=== PATIENT | female | born 1955 | race Caucasian/White ===

== ENCOUNTER 2020-05-10 18:08 | Inpatient (IN) | payer BC ==
[~2020-05-10] VITALS: Ht 157.5 cm; Wt 63.6 kg
[2020-05-10 19:13] LABS: BASOPHILS % (AUTO) 0.2 % (0-1); EOSINOPHILS # (AUTO) 0.1 X10'3 (0-0.9); EOSINOPHILS % (AUTO) 0.8 % (0-6); HEMATOCRIT 34.9 % (35.0-45.0); HEMOGLOBIN 11.9 g/dl (12.0-16.0); LYMPHOCYTES # (AUTO) 0.8 X10'3 (1.1-4.8); MEAN CORPUSCULAR HEMOGLOBIN 32.4 PG (27.0-31.0); MEAN CORPUSCULAR HGB CONC 34.2 g/dL (33.0-36.5); MEAN CORPUSCULAR VOLUME 94.7 FL (78-98); MEAN PLATELET VOLUME 9.2 FL (7.4-10.4); MONOCYTES # (AUTO) 0.6 X10'3 (0-0.9); MONOCYTES % (AUTO) 6.9 % (2-12); NEUTROPHILS # (AUTO) 6.8 X10'3 (1.8-7.7); NEUTROPHILS % (AUTO) 82.1 % (42-75); PLATELET COUNT 175 X10'3 (140-440); RED BLOOD COUNT 3.68 X10'6 (4.20-5.60); RED CELL DISTRIBUTION WIDTH 13.4 % (11.5-14.5); WHITE BLOOD COUNT 8.3 X10'3 (4.5-11.0)
[2020-05-10 19:25] LABS: ALANINE AMINOTRANSFERASE 476 U/L (12-78); ALKALINE PHOSPHATASE 74 IU/L (46-116); ANION GAP 10 (8-16); ASPARTATE AMINO TRANSFERASE 254 U/L (10-37); BILIRUBIN,TOTAL 4.9 MG/DL (0.1-1.0); BLOOD UREA NITROGEN 13 MG/DL (7-18); BUN/CREATININE RATIO 12.6 (6.6-38.0); CALCIUM 8.8 MG/DL (8.5-10.1); CHLORIDE 102 MMOL/L (99-107); CREATININE 1.03 MG/DL (0.40-0.90); GLUCOSE 103 MG/DL (70-104); LIPASE 92 U/L (73-393); POTASSIUM 3.9 MMOL/L (3.5-5.1); SODIUM 138 MMOL/L (135-145); TOTAL CARBON DIOXIDE 26.3 MMOL/L (24-32); eGFR 54 ML/MIN
[2020-05-10 19:27] LABS: TOTAL PROTEIN 6.1 G/DL (6.4-8.2)
[2020-05-10 20:13] LABS: PARTIAL THROMBOPLASTIN TIME 31 SECONDS (22-32)
[2020-05-10] MEDS ORDERED: NO HOME MEDS (20:14)
[2020-05-10] MEDS ORDERED: magnesium hydroxide 30ml (MOM) UD suspension PO PRN (20:25)
[2020-05-10] MEDS ORDERED: potassium CL 10mEq/100ml bag 100 ML IV PRN ×2 (20:25)
[2020-05-10] MEDS ORDERED: ondansetron/PF 4mg/2ml inj IV PRN (20:25)
[2020-05-10] MEDS ORDERED: magnesium 2GM in 50ml NS 50 ML IV PRN (20:25)
[2020-05-10] MEDS ORDERED: magnesium 4gm in 100ml NS 100 ML IV PRN (20:25)
[2020-05-10] MEDS ORDERED: potassium Cl 20 mEq SR tablet PO PRN ×2 (20:25)
[2020-05-10] MEDS ORDERED: magnesium Cl slow-release 64mg tablet PO PRN (20:25)
[2020-05-10] MEDS ORDERED: mag hydrox/Alum hydrox/simeth 30ml oral suspension PO PRN (20:25)
[2020-05-10] MEDS ORDERED: morphine 2 MG/ML inj. syringe IV PRN (20:25)
[2020-05-10] MEDS ORDERED: SINCALIDE IV PRN (20:25)
[2020-05-10] MEDS ORDERED: acetaminophen 325mg tablet PO PRN (20:25)
[2020-05-10] MEDS: normal saline 1000ml 1,000 ML IV SCH (20:25)
[2020-05-10] MEDS ORDERED: NORMAL SALINE IV PRN (20:25)
--- NOTE | 2020-05-11 02:30 | NUR ---
lying supine sleeping no apparent distress, eupneic respiriations
--- NOTE | 2020-05-11 03:30 | NUR ---
up to bathroom stand by assist. No compalints at this time,
--- NOTE | 2020-05-11 04:30 | NUR ---
laying supine eupneic respirations, no signs of distress
--- NOTE | 2020-05-11 05:25 | NUR ---
laying on left side eupneice respirations, no signs of distress
[2020-05-11] MEDS: K and/or MAG REPLACEMENT MC SCH ×2 (08:00→20:00)
[2020-05-11 08:24] LABS: BASOPHILS % (AUTO) 0.3 % (0-1); EOSINOPHILS # (AUTO) 0.2 X10'3 (0-0.9); EOSINOPHILS % (AUTO) 3.4 % (0-6); HEMATOCRIT 34.1 % (35.0-45.0); HEMOGLOBIN 11.4 g/dl (12.0-16.0); LYMPHOCYTES # (AUTO) 0.6 X10'3 (1.1-4.8); LYMPHOCYTES % (AUTO) 12.7 % (21-51); MEAN CORPUSCULAR HGB CONC 33.4 g/dL (33.0-36.5); MEAN CORPUSCULAR VOLUME 95.7 FL (78-98); MEAN PLATELET VOLUME 9.5 FL (7.4-10.4); MONOCYTES # (AUTO) 0.5 X10'3 (0-0.9); MONOCYTES % (AUTO) 10.8 % (2-12); NEUTROPHILS # (AUTO) 3.5 X10'3 (1.8-7.7); NEUTROPHILS % (AUTO) 72.8 % (42-75); PLATELET COUNT 166 X10'3 (140-440); RED BLOOD COUNT 3.57 X10'6 (4.20-5.60); RED CELL DISTRIBUTION WIDTH 13.6 % (11.5-14.5); WHITE BLOOD COUNT 4.7 X10'3 (4.5-11.0)
[2020-05-11 08:43] LABS: ALANINE AMINOTRANSFERASE 349 U/L (12-78); ALBUMIN 2.8 G/DL (3.4-5.0); ALBUMIN/GLOBULIN RATIO 0.8 (1.1-1.5); ALKALINE PHOSPHATASE 69 IU/L (46-116); ANION GAP 6 (8-16); ASPARTATE AMINO TRANSFERASE 144 U/L (10-37); BILIRUBIN,TOTAL 3.7 MG/DL (0.1-1.0); BLOOD UREA NITROGEN 9 MG/DL (7-18); BUN/CREATININE RATIO 9.5 (6.6-38.0); CALCIUM 9.5 MG/DL (8.5-10.1); CHLORIDE 109 MMOL/L (99-107); CREATININE 0.95 MG/DL (0.40-0.90); GLUCOSE 107 MG/DL (70-104); SODIUM 142 MMOL/L (135-145); TOTAL CARBON DIOXIDE 27.2 MMOL/L (24-32); TOTAL PROTEIN 6.1 G/DL (6.4-8.2); eGFR 59 ML/MIN
[2020-05-11] MEDS: normal saline 1000ml 1,000 ML IV SCH ×2 (08:55→20:56)
--- NOTE | 2020-05-11 11:06 | NUR ---
Patient in room ED 10. I have received report from JEFFERSON Woods and had the opportunity to ask questions and assume patient care.
--- NOTE | 2020-05-11 11:15 | NUR ---
Pt arrived to surgical floor via wheelchair
[2020-05-11 11:20] VITALS: BP 117/59
[2020-05-11] MEDS ORDERED: acetaminophen 325mg tablet PO PRN (12:45)
--- NOTE | 2020-05-11 13:16 | NUR ---
Pt transported to [facility] via wheelchair. Belongings left in room 223Q
[2020-05-11] MEDS ORDERED: NORMAL SALINE IV PRN (15:01)
[2020-05-11] MEDS ORDERED: SINCALIDE IV PRN (15:01)
--- NOTE | 2020-05-11 16:00 | NUR ---
pt back from HIDA scan, at bedside
[2020-05-11 16:09] VITALS: BP 150/76
--- NOTE | 2020-05-11 18:27 | NUR ---
Problems reprioritized. Patient report given, questions answered & plan of care reviewed with JEFFERSON Prakash.
--- NOTE | 2020-05-11 18:43 | NUR ---
I have received report from Neva PAULINO and had the opportunity to ask questions and assume patient care.
[2020-05-11 20:00] VITALS: BP 132/53
[2020-05-11] MEDS: piperacillin/tazo 4.5gm/100ml 100 ML IV SCH (20:59)
[2020-05-12] VITALS: BP 120/74
[2020-05-12] MEDS: normal saline 1000ml 1,000 ML IV SCH ×2 (02:25→05:52)
[2020-05-12 05:05] LABS: BASOPHILS % (AUTO) 0.5 % (0-1); EOSINOPHILS # (AUTO) 0.2 X10'3 (0-0.9); EOSINOPHILS % (AUTO) 5.6 % (0-6); HEMATOCRIT 34.3 % (35.0-45.0); HEMOGLOBIN 11.4 g/dl (12.0-16.0); LYMPHOCYTES # (AUTO) 0.8 X10'3 (1.1-4.8); MEAN CORPUSCULAR HEMOGLOBIN 31.4 PG (27.0-31.0); MEAN CORPUSCULAR HGB CONC 33.1 g/dL (33.0-36.5); MEAN PLATELET VOLUME 9.6 FL (7.4-10.4); MONOCYTES # (AUTO) 0.5 X10'3 (0-0.9); MONOCYTES % (AUTO) 12.2 % (2-12); NEUTROPHILS # (AUTO) 2.6 X10'3 (1.8-7.7); NEUTROPHILS % (AUTO) 62.7 % (42-75); PLATELET COUNT 169 X10'3 (140-440); RED BLOOD COUNT 3.61 X10'6 (4.20-5.60); RED CELL DISTRIBUTION WIDTH 13.4 % (11.5-14.5); WHITE BLOOD COUNT 4.2 X10'3 (4.5-11.0)
[2020-05-12 05:25] LABS: ALANINE AMINOTRANSFERASE 239 U/L (12-78); ALBUMIN 2.8 G/DL (3.4-5.0); ALBUMIN/GLOBULIN RATIO 0.9 (1.1-1.5); ALKALINE PHOSPHATASE 67 IU/L (46-116); ANION GAP 9 (8-16); ASPARTATE AMINO TRANSFERASE 64 U/L (10-37); BILIRUBIN,TOTAL 1.2 MG/DL (0.1-1.0); BLOOD UREA NITROGEN 7 MG/DL (7-18); BUN/CREATININE RATIO 7.3 (6.6-38.0); CHLORIDE 109 MMOL/L (99-107); CREATININE 0.96 MG/DL (0.40-0.90); GLUCOSE 96 MG/DL (70-104); MAGNESIUM 1.7 MG/DL (1.5-2.4); POTASSIUM 3.7 MMOL/L (3.5-5.1); SODIUM 143 MMOL/L (135-145); TOTAL CARBON DIOXIDE 24.7 MMOL/L (24-32); eGFR 59 ML/MIN
--- NOTE | 2020-05-12 06:30 | NUR ---
Patient in room [facility] 347. I have received report from JEFFERSON Gunderson and had the opportunity to ask questions and assume patient care.
--- NOTE | 2020-05-12 06:30 | NUR ---
Patient in room [facility] 347. I have received report from JEFFERSON Gunderson and had the opportunity to ask questions and assume patient care.
--- NOTE | 2020-05-12 06:33 | NUR ---
Problems reprioritized. Patient report given, questions answered & plan of care reviewed with Yuniel PAULINO.
--- NOTE | 2020-05-12 06:33 | NUR ---
pt daughter josefina called several times last night. daughter is rn at [employer]. daughter was upset her mom was not started on zosyn here due to positive blood cultures in [facility]. daughter wanted zosyn started. daughter also wanted her mom discharged. surgery was planned for pt today but pt is refusing discharge. pt wanted to leave [facility] but decided against it. md was notified but would not discharged due to positive blood cultures. zosyn was started.
[2020-05-12 07:00] VITALS: BP 133/70
[2020-05-12] MEDS: piperacillin/tazo 4.5gm/100ml 100 ML IV SCH (07:43)
[2020-05-12] MEDS: K and/or MAG REPLACEMENT MC SCH (08:00)
--- NOTE | 2020-05-12 09:00 | NUR ---
Dr. Mckeon called stating patient is ok for Dr. Faust to dc patient. No surgery planned. Dr. Faust and patient notified.
--- NOTE | 2020-05-12 10:06 | NUR ---
Dr. Faust spoke to patient and will be putting in DC orders soon.
--- NOTE | 2020-05-12 10:21 | NUR ---
Student documentation: I have reviewed and agree with all interventions, assessments performed and documented by SN Savannah. Student Medication Administration: For this medication-pass time frame, all medication were reviewed, dispensed, administered and documented per hospital policy by SN Savannah.
[2020-05-12] MEDS ORDERED: LEVO750T46 PO (10:43)
--- NOTE | 2020-05-12 12:10 | NUR ---
Patient discharged instruction was went over with patient and daughter at bedside (SN Savannah). I went over the admission diagnosis and advised the patient to follow up with primary doctor or Dr. Mckeon in two weeks. The patient was given the opportunity to ask any questions and express any concerns. The patient was AxO X4 upon discharge. Madelyn ANNE escorted the patient down to the lobby via wheelchair.
--- NOTE | 2020-05-12 12:32 | NUR ---
Patient discharge instructions and levaquin prescription discussed with patient by SN Savannah and this RN. Patient daughter, Chris, at bedside for teaching as well. Patient verbalized understanding of teaching and both had no questions regarding teaching. Patient asked for medical records. Medical records form filled out and signed by patient placed in chart for medical records to receive. Patient was alert and oriented with no complaints at time of dc. IV was dc'd. Patient dc'd with all personal belongings escorted in wheelchair. Daughter Chris to transport home via private vehicle.
== END 2020-05-12 12:10 | disposition home or self-care (01) | DRG 872 ==
LOC: ER 18:10 → ED HOLD 20:24 → SUR 3N 05-11 11:16
PROVIDERS: ADMIT Family Medicine; ATTEND Family Medicine
DX: A41.9 Sepsis, unspecified organism (principal); K80.10 Calculus of gallbladder with chronic cholecystitis without obstruction; B96.1 Klebsiella pneumoniae [K. pneumoniae] as the cause of diseases classified elsewhere
CPT/HCPCS: 36415; 74181; 78227; 80053; 83605; 83690; 83735; 85025; 85610; 85730; 87040; 87081; 96365; 99285; A9537; G0378; J2543; J2805; J7030